=== PATIENT | male | born 1960 | race African-American/Black ===

== ENCOUNTER 2019-11-02 23:09 | Emergency (ER) | payer MEDICAID ==
[~2019-11-02] VITALS: Ht 170.2 cm; Wt 77.0 kg
[2019-11-02] MEDS ORDERED: HYDROCODONE/ACETAMINOPHEN 5/325MG TABLET PO ONE (23:30)
[2019-11-02] MEDS ORDERED: BACITRACIN ZINC OINT UDPKT TOP ONE (23:30)
[2019-11-02] MEDS ORDERED: IBUPROFEN 600MG TABLET PO ONE (23:30)
[2019-11-03 02:41] VITALS: BP 154/82
== END 2019-11-03 02:42 | disposition home or self-care (01) ==
LOC: ER 23:09
DX: S80.812A Abrasion, left lower leg, initial encounter (principal); S82.892A Other fracture of left lower leg, initial encounter for closed fracture; W22.8XXA Striking against or struck by other objects, initial encounter; Y93.89 Activity, other specified; Y92.89 Other specified places as the place of occurrence of the external cause; Y99.8 Other external cause status; E11.9 Type 2 diabetes mellitus without complications; I10 Essential (primary) hypertension
CPT/HCPCS: 73562; 99283